=== PATIENT | male | born 1950 | race Caucasian/White ===

== ENCOUNTER 2023-09-09 11:57 | Outpatient (CLI) | payer MEDICARE, SELFPAY ==
--- NOTE | 2023-09-09 13:25 | ECG_ITS ---
Measurements Intervals [place] Rate: 52 P: 27 GA: 162 QRS: 12 QRSD: 90 T: 6 QT: 407 QTc: 381 Interpretive Statements SINUS BRADYCARDIA BORDERLINE T WAVE ABNORMALITY- INFERIOR LEADS BASELINE ARTIFACT- I, II, III, AVR, AVL, AVF, V4-V6 BORDERLINE ECG NO PREVIOUS ECG AVAILABLE FOR COMPARISON Electronically Signed On 09-09-2023 14:08:11 CDT by Michael Patel D.O.
[2023-09-09 14:24] LABS: Anion Gap 6 mmol/L (8-16); Blood Urea Nitrogen 27 mg/dL (9-20); Calcium 9.9 mg/dL (8.4-10.2); Carbon Dioxide 32 mmol/L (22-30); Chloride 103 mmol/L (98-107); Estimated Glomerular Filt Rate 43; Glucose 141 mg/dL (65-110); Potassium 4.4 mmol/L (3.4-5.0); Sodium 141 mmol/L (137-145)
[2023-09-09 14:28] LABS: Prothrombin Time 13.6 Seconds (11.1-14.7)
[2023-09-09 14:29] LABS: Partial Thromboplastin Time 24.7 Seconds (22.3-36.8)
[2023-09-09 15:01] LABS: Hemoglobin A1C 7.1 % (<5.7)
== END 2023-09-09 11:58 | disposition home or self-care (01) ==
LOC: ANHSURGERY 12:08
PROVIDERS: Anesthesiology; Visit Provider Urology
DX: N52.9 Male erectile dysfunction, unspecified (principal); Z01.818 Encounter for other preprocedural examination; I12.9 Hypertensive chronic kidney disease with stage 1 through stage 4 chronic kidney disease, or unspecified chronic kidney disease; N18.9 Chronic kidney disease, unspecified; E11.9 Type 2 diabetes mellitus without complications
CPT/HCPCS: 36415; 80048; 83036; 85610; 85730; 87086; 93005

== ENCOUNTER 2023-10-02 01:55 | Day surgery (SDC) | payer MEDICARE, SELFPAY ==
--- NOTE | 2023-09-09 12:03 | PC.NURSE ---
Report to the Outpatient Waiting Room, entrance under the green pavilion located off [facility], at time __6:00AM on date __10/02/23 . Planned Procedure Time: __7:30AM . Time changes happen often and if your time is changed the preop area will call you the afternoon before. - You and your visitor will be asked to self-screen and do not enter if you have any COVID symptoms. - A mask is optional within the hospital at this time. Patients may have clear liquids (water, carbonated beverages, clear teas, apple juice) until 3 hours prior to surgery with a maximum of 20 ounces. - No food from midnight until time of surgery. Take the following medications with a SIP of water the morning of surgery: ___CARVEDILOL, EYE DROPS DO NOT STOP ANY OF YOUR OTHER PRESCRIPTION MEDICATIONS PRIOR TO SURGERY ?EXCEPT THE FOLLOWING Medications to discontinue per physician ___HOLD ASPIRIN 7 DAYS PRE-OP PER DR KIDD Date to take last dose____09/24/23 Please no make-up, nail portuguese, hairspray, perfume, deodorant, or body powder the day of surgery. No jewelry (including any body piercings) or valuables the day of surgery, leave them at home. Please take a shower or bath the night before, or the morning of, surgery with an antibacterial soap. Wear comfortable, loose fitting clothing. - Jewelry must be removed prior to entering the operating room. Rings and piercings that are not removed may be cut off. - The hospital will not accept responsibility for valuables. - Please leave all valuables, including medications, at home the day of surgery. If you are going home after surgery, a licensed regional truck driver must drive you home. - NO public transportation without another adult if you receive anesthesia. - We recommend that an adult stay with you for 24 hours following discharge. - We also recommend that you do not drive, make important decision, drink alcoholic beverages, or take any drugs that were not prescribed by your health care provider for at least 24 hours after your discharge time. Follow any additional instructions given to you from your surgeon. If you or anyone in your household have experienced Covid symptoms in the past week, please notify your surgeon or the nurse liaison at the phone number below for possible testing. Telephone instructions given to ____PATIENT and asked if any additional questions and then verbalized understanding. Patient advised to call surgeon office or pre surgery nurse liaison [phone] if any additional questions.
[2023-09-09 12:29] VITALS: BP 134/68; PULSE 63; RESP 16; TEMP 36.4; O2SAT 95; BMI 33.2
[2023-10-02] VITALS (15 sets, daily range): BP systolic 125–158; BP diastolic 64–82; PULSE 58–70; RESP 12–18; TEMP 36.1–37.1; O2SAT 93–100; BMI 31.9
[2023-10-02] MEDS: VANCOMYCIN 1,500 MG/NS 500 ML BAG 250 MG IVPB (06:55)
[2023-10-02] MEDS: LACTATED RINGERS 1,000 ML 30 ML IV CONT ×2 (06:55→11:33)
[2023-10-02] MEDS: DEXTROSE 5% IVPB (07:00)
[2023-10-02] MEDS: GENTAMICIN SULFATE IVPB (07:00)
[2023-10-02 07:16] LABS: Glucose Point of Care 126 mg/dl (65-105)
--- NOTE | 2023-10-02 07:30 | WPDHPUPDATE1 ---
History and Physical Update Update Date/Time: 10/02/23 07:30 History and Physical has been reviewed, including an updated exam of the patient. There are NO changes in the patient's condition. Risks, benefits, and alternatives have been discussed and questions answered. Patient agrees to proceed with procedure.
--- NOTE | 2023-10-02 07:54 | P.PNAN_ITS ---
Anes - Initial Pre Proc Eval Procedure: Operation Date: 10/02/23 08:30 Proposed Procedures p Insertion Inflatable Penile Prosthesis - Mau Armstrong MD Date/Time: 10/02/23 07:54 Surgeon: Mau Armstrong MD Pre Op Diagnosis: ED, Male stress incontinence Patient Data Age: 73 Gender: M Height: 1.73 m Weight: 95.4 kg Last Vital Signs Temp 97 F L 10/02/23 07:17 Pulse 58 L 10/02/23 07:17 Resp 16 10/02/23 07:17 BP 150/80 H 10/02/23 07:17 Pulse Ox 98 10/02/23 07:17 O2 Del Method Room Air 10/02/23 07:17 Allergies Allergy/AdvReac Type Severity Reaction Status Date / Time No Known Allergies Allergy Verified 10/02/23 06:34 Home Medications Medication Instructions Recorded Confirmed Type aspirin 81 mg tablet 81 mg PO DAILY 09/09/23 10/02/23 History atorvastatin 20 mg tablet 20 mg PO QAM 09/09/23 10/02/23 History carvedilol 6.25 mg tablet 6.25 mg PO QAM 09/09/23 10/02/23 History dulaglutide 0.75 mg/0.5 mL 0.75 mg subcut WEEKLY 09/09/23 10/02/23 History subcutaneous pen injector (Trulicity) fenofibrate 150 mg capsule 150 mg PO QAM 09/09/23 10/02/23 History omeprazole 40 mg capsule,delayed 40 mg PO QAM 09/09/23 10/02/23 History release perfluorohexyloctane (PF) 100 % 1 drp EACH EYE BID 09/09/23 10/02/23 History eye drops (Miebo) pioglitazone 30 mg tablet 30 mg PO QAM 09/09/23 10/02/23 History sildenafil 100 mg tablet 12.5 mg PO 4XW 09/09/23 09/09/23 History valsartan 160 mg tablet 160 mg PO QAM 09/09/23 10/02/23 History Laboratory Tests 10/02/23 07:13 POC Capillary Glucose 126 H mg/dl (65-105) Patient hx anesthesia problems: none Family hx anesthesia problems: none Results Review: All pre-operative results and documents have been reviewed as part of the pre- operative evaluation. PMFSH Social History Social History Smoking status: Former smoker Tobacco type: cigarettes Smoking end date: 12/23/99 Additional smoking assessment comments: 1 PACK/WEEK X 30 YRS Living arrangements: alone Spiritual care concerns: No Anes - Eval Final PreProcedure Day of Procedure 10/02/23 07:54 Patient weight: obese Heart: regular rate and rhythm Lungs: clear to auscultation Airway: Mallampati scale class III Neurological: alert and oriented Last oral intake: >/= 8 hours ASA classification: III Emergent: no Anesthetic plan: proceed Anesthesia type and monitoring: general LMA and ETT and standard monitoring Results Review: All pre-operative results and documents have been reviewed as part of the pre- operative evaluation. Informed Consent: The patient's anesthetic plan and its attendant risks and benefits were discussed with the patient/family/POA. Questions were solicited and answers provided to the satisfaction of the patient/family/POA.
[2023-10-02] MEDS: ceFAZolin SODIUM 1 GM VIAL (09:44)
[2023-10-02] MEDS: LIDOCAINE 1% BUFFERED WITH 8.4% SODIUM BICARB 1 ML SYRINGE 10 ML INFILTRATE (09:45)
[2023-10-02] MEDS: BUPivacaine HCL 0.25% PF 30 ML VIAL INFILTRATE (09:47)
--- NOTE | 2023-10-02 11:34 | W.PM.PROC2 ---
Procedure Note - Detailed Date of Procedure 10/02/23 Pre-op Diagnosis ED Post-op Diagnosis Other (ED, Peyronie's) Procedure Performed 1. Insertion of 3-piece inflatable penile prosthesis. 2. Artificial erection using pharmacological agent. 3. Modelling to correct Peyronie's disease Surgeon Mau Armstrong MD Anesthesia General Description of Procedure DESCRIPTION OF OPERATION Informed consent obtained, patient taken to the operating room and given preoperative IV antibiotics with vancomycin and gentamicin. Additionally the patient has been taking oral levofloxacin and done a 3-day wash with Hibiclens. The patient was shaved. He was then prepped with Betadine scrub and paint followed by ChloraPrep. Sterile drapes were placed. We again prepped with ChloraPrep. A 16-Uzbek Husain catheter was inserted with return of clear urine. We then performed a pharmacologically induced erection with dilute lidocaine. There was a symmetric erection with slight dorsal curvature. We then made a penoscrotal 3 cm transverse incision. We dissected bluntly down to identify the corporal bodies taking great care not to injure the urethra. Stay sutures of 2-0 PDS were placed in the corporal body. We sharply opened the corpora. We then serially dilated up to a 12 Georges dilator. We then measured the corpora. Measurements were 8.5 cm proximally and 11.5 cm distally. We irrigated and there was no injury. We then performed an identical procedure on the contralateral side. Measurements were 9 cm proximal, 11 cm distal. Dilators were placed into the corpora bilaterally confirming that there was no crossover. We elected to place an AMS CX device 18 cm + 2 cm of rear tip extenders. We again irrigated the corporal bodies. We then inserted the prosthesis. We inflated using a surrogate reservoir and the device sat nicely with tips in the mid glans, with [id number] of dorsal curvature. We then placed rubber shod on the tubing to the pump and performed penile modeling to correct the curvature. We took great care not to injure the fossa navicularis or IPP with modeling procedure. Able to correct the curvature to no more than 10? of curvature in any direction.. We then deflated. We then closed the pre-placed 2-0 PDS sutures. We again inflated using the surrogate reservoir with a straight erection and excellent cosmetic result. We then made a left lower quadrant incision for approximately 2 cm. We bluntly dissected down to the external oblique fascia. The fascia was opened. We then the rectus muscle and created a space superiorly in the sub rectus. We emptied the bladder prior to our incision. We then irrigated copiously. We pre-placed 0 Vicryl sutures. We placed the reservoir in the sub rectus space. We fill it with 100 mL and there was no back pressure. We then left 85 mL in the reservoir. Our pre-placed external oblique fascia sutures were closed. We then made a subdartos pouch in the midline for the pump placement. It sat nicely in the inferior scrotum. We then closed the hiatus with 3-0 Vicryl suture. The tubing was then brought up to the abdominal incision. Using the quick connect device, we connected the pump to the reservoir. We then cycled the device again and it functioned nicely. We then removed the stay sutures through the glans. We then again irrigated copiously. We closed the scrotal incision with a multiple layers of 3-0 Vicryl sutures and then 3-0 and 4-0 Monocryl skin closure. The left lower quadrant incision was closed with 2-0 Vicryl to Forest's, 3-0 Vicryl deep dermal layer and a 4-0 Monocryl subcuticular closure. Glue was placed over all incisions. A compressive dressing was placed. Patient was awakened and taken to recovery room in stable condition. Complications No immediate complications Condition Stable Disposition PACU
[2023-10-02 11:55] LABS: Glucose Point of Care 100 mg/dl (65-105)
[2023-10-02] MEDS: fentaNYL CITRATE INJ (*CRX) 100 MCG/2 ML VIAL 25 MCG IV PUSH (12:28)
--- NOTE | 2023-10-02 13:33 | ADMGEN ---
This patient, Floyd Vela, was admitted to Medical Room 348-01. Patient/family oriented to hospital policies and general routines including ID bracelet, bed and alarms, visiting hours, pain management, procedures, bathroom and other care routines, personal items, smoking policy, room service/diet, and visiting hours. Information on how to activate the Rapid Response Team has been discussed. Patient/Family are encouraged to report perceived risks to care and to ask questions if they do not understand what they are told or what they should do.
[2023-10-02] MEDS: HYDROcodone/acetaminophen (*CRX) 5-325 MG TABLET 1 TAB PO ×2 (14:37→23:52)
[2023-10-02] MEDS: DEXTROSE 5%/0.45% SOD CHL 1,000 ML 125 ML IV CONT ×2 (14:38→22:18)
[2023-10-02] MEDS: DOCUSATE SODIUM 100 MG CAPSULE PO (16:40)
[2023-10-02] MEDS: MORPHINE SULFATE (*CRX) 2 MG/ML INJ IV PUSH ×3 (16:44→21:42)
[2023-10-02 17:06] LABS: Glucose Point of Care 132 mg/dl (65-105)
[2023-10-02] MEDS: VANCOMYCIN 1,000 MG/NS 250 ML 1,000 MG/250 ML BAG 250 MG IVPB (18:11)
[2023-10-03] MEDS: HYDROcodone/acetaminophen (*CRX) 5-325 MG TABLET 1 TAB PO ×3 (03:57→13:10)
[2023-10-03 03:58] VITALS: BP 123/66; PULSE 58; RESP 17; TEMP 36.5; O2SAT 94
[2023-10-03] MEDS: DEXTROSE 5%/0.45% SOD CHL 1,000 ML 125 ML IV CONT (03:59)
[2023-10-03 06:12] LABS: Hematocrit 39.3 % (42.0-52.0); Hemoglobin 12.6 g/dL (14.0-18.0)
[2023-10-03 06:32] LABS: Anion Gap 5 mmol/L (4-12); Blood Urea Nitrogen 15 mg/dL (9-20); Calcium 8.6 mg/dL (8.4-10.2); Carbon Dioxide 25 mmol/L (22-30); Chloride 105 mmol/L (98-107); Estimated CRCL calculation 61 ml/min; Estimated Glomerular Filt Rate > 60; Glucose 152 mg/dL (65-110); Potassium 3.6 mmol/L (3.4-5.0); Sodium 135 mmol/L (137-145)
[2023-10-03] MEDS: VANCOMYCIN 1,000 MG/NS 250 ML 1,000 MG/250 ML BAG 250 MG IVPB (06:32)
--- NOTE | 2023-10-03 07:54 | WPDANESPN ---
Anes - Prog Note Post-Op Date/Time: 10/03/23 07:54 Cardiovascular status: normal Respiratory status: normal Airway patency: baseline Mental status: baseline Post-Op hydration status: normal Vital Signs: Last Vital Signs Temp 36.5 C 10/03/23 03:58 Pulse 58 L 10/03/23 03:58 Resp 17 10/03/23 03:58 BP 123/66 10/03/23 03:58 Pulse Ox 94 10/03/23 03:58 O2 Del Method Nasal Cannula 10/02/23 19:41 O2 Flow Rate 1 10/02/23 19:41 Pain Score (VAS): 08/03 I/O: Intake & Output 10/02/23 10/02/23 10/03/23 15:59 23:59 07:59 Intake Total 710 1948.3 810.4 Output Total 776 583 6400 Balance 350 1548.3 -839.6 Laboratory Tests 10/03/23 05:33 10/03/23 05:33 10/02/23 10/02/23 10/03/23 11:50 17:02 05:33 Hgb 12.6 L Hct 39.3 L Sodium 135 L Potassium 3.6 Chloride 105 Carbon Dioxide 25 Anion Gap 5 BUN 15 D Creatinine 1.10 Estim Creat Clear Calc 61 Estimated GFR > 60 Glucose 152 H POC Capillary Glucose 100 132 H Calcium 8.6 Post-procedural complaints: none Patient Feedback: Patient satisfied with anesthetic care.
[2023-10-03 07:58] VITALS: O2SAT 93
[2023-10-03 08:00] VITALS: BP 146/68; PULSE 58; RESP 18; TEMP 36.3; O2SAT 96
[2023-10-03 08:41] LABS: Glucose Point of Care 142 mg/dl (65-105)
[2023-10-03] MEDS: DOCUSATE SODIUM 100 MG CAPSULE PO (08:48)
[2023-10-03] MEDS: levoFLOXacin 500 MG TABLET PO (08:48)
[2023-10-03] MEDS: ATORVASTATIN 20 MG TABLET PO (08:48)
[2023-10-03] MEDS: ENOXAPARIN 30 MG/0.3 ML SYRINGE SUB-Q (08:49)
[2023-10-03] MEDS: VALSARTAN 160 MG TABLET PO (08:49)
[2023-10-03] MEDS: PIOGLITAZONE HCL 30 MG TABLET PO (08:49)
[2023-10-03 08:50] VITALS: PULSE 60
[2023-10-03] MEDS: carvediloL 6.25 MG TABLET PO (08:50)
--- NOTE | 2023-10-03 09:02 | WPDUROPN2 ---
Progress Note: A&P Assessment and Plan (1) Erectile dysfunction: Code(s): N52.9 - Male erectile dysfunction, unspecified Status: Acute Assessment and Plan: Underwent insertion of 3 piece inflatable penile prosthesis on 10/02/[address] Armstrong. Tolerated procedure well and pain has been well controlled. Dressing removed today and surgical site looks good. Guerra catheter removed without difficulty. Will plan for discharge home later today after patient has voided. Postoperative instructions reviewed. (2) Peyronie's disease: Code(s): N48.6 - Induration penis plastica Status: Acute Assessment and Plan: S/p penile modeling procedure Subjective Subjective Date/Time Seen: 10/03/23 09:02 Interval history: Doing well. Pain well controlled. No nausea or vomiting. Tolerating diet. Ambulating without difficulty. Review of Systems Review of Systems: All systems reviewed & are unremarkable except as noted in HPI and below Exam Narrative: General: Awake, alert, comfortable, no acute distress HEENT: Normocephalic, atraumatic, sclerae anicteric Respiratory: Normal respiratory effort, no accessory muscle use Abdomen: Nondistended, soft, nontender : guerra catheter draining clear yellow urine, penis is erect and covered with dressing that is clean and dry, scrotal incision clean dry and intact Skin: Normal coloration, warm and dry, left lower quadrant incision clean dry intact, covered with dermabond Neurologic: No focal neuro deficits noted Psychiatric: Appropriate mood and affect, judgment and insight intact Objective Data Vital Signs Vital Signs: Vital Signs - 24 hr 10/02/23 11:33 10/02/23 11:45 10/02/23 12:00 Temperature 97.9 F Pulse Rate 70 67 65 Respiratory Rate 14 13 13 Blood Pressure 129/74 136/72 131/69 Pulse Oximetry 97 98 93 Oxygen Delivery Simple Face Mask Simple Face Mask Room Air Oxygen Flow Rate 6 10 10/02/23 12:15 10/02/23 12:30 10/02/23 12:45 Temperature Pulse Rate 64 58 L 60 Respiratory Rate 16 12 14 Blood Pressure 125/68 129/72 125/82 Pulse Oximetry 97 96 96 Oxygen Delivery Nasal Cannula Nasal Cannula Nasal Cannula Oxygen Flow Rate 2 2 2 10/02/23 13:00 10/02/23 13:30 10/02/23 14:00 Temperature 98.2 F 98.2 F Pulse Rate 58 L 59 L 58 L Respiratory Rate 12 16 16 Blood Pressure 135/68 145/64 H 138/69 Pulse Oximetry 96 100 100 Oxygen Delivery Nasal Cannula Oxygen Flow Rate 2 10/02/23 15:00 10/02/23 18:26 10/02/23 19:41 Temperature 98.2 F Pulse Rate 59 L Respiratory Rate 18 Blood Pressure 158/70 H Pulse Oximetry 100 96 96 Oxygen Delivery Nasal Cannula Nasal Cannula Oxygen Flow Rate 1 1 10/02/23 18:48 10/02/23 22:48 10/03/23 03:58 Temperature 98.8 F 98.1 F 97.7 F Pulse Rate 60 64 58 L Respiratory Rate 18 17 17 Blood Pressure 138/79 133/68 123/66 Pulse Oximetry 98 98 94 Oxygen Delivery Oxygen Flow Rate 10/03/23 07:58 10/03/23 08:00 10/03/23 08:50 Temperature 97.3 F L Pulse Rate 58 L 60 Respiratory Rate 18 Blood Pressure 146/68 H Pulse Oximetry 93 96 Oxygen Delivery Room Air Oxygen Flow Rate Intake/Output Intake/Output: Intake & Output 09/30/23 10/01/23 10/02/23 10/03/23 23:59 23:59 23:59 23:59 Intake Total 2658.3 810.4 Output Total 760 1650 Balance 1898.3 -839.6 Meds/Results Medications: Active Medications Generic Name Dose Route Start Last Admin Trade Name Freq PRN Reason Stop Dose Admin Hydrocodone Bitart/Acetaminophen 1 tab 10/02/23 13:03 10/03/23 08:51 Hydrocodone/Acetaminophen (*Crx) 5-325 Mg Tablet PO 1 tab Q4H PRN Administration Pain Rated 1-6 Atorvastatin Calcium 20 mg 10/03/23 09:00 10/03/23 08:48 Atorvastatin 20 Mg Tablet PO 20 mg QAM ISATU Administration Carvedilol 6.25 mg 10/03/23 09:00 10/03/23 08:50 Carvedilol 6.25 Mg Tablet PO 6.25 mg QAM ISATU Administration Docusate Sodium 100 mg 10/02/23 17:
[2023-10-03 12:01] LABS: Glucose Point of Care 141 mg/dl (65-105)
--- NOTE | 2023-10-03 12:03 | PM.DS ---
DS: Admitting Diagnosis Discharge Date 10/03/2023 Admitting Diagnosis Erectile dysfunction DS: Discharge Diagnosis Discharge Diagnosis (1) Erectile dysfunction: Code(s): N52.9 - Male erectile dysfunction, unspecified Status: Acute (2) Peyronie's disease: Code(s): N48.6 - Induration penis plastica Status: Acute DS: Summary Hospital Course Hospital Course: Floyd Vela is a 73 year old male who presented to [facility] on 10/02/2023 and underwent insertion of 3 piece inflatable penile prosthesis and moderling to correct Peyronie's disease by Dr. Armstrong. He tolerated the procedure well and his pain was controlled postoperatively. Dressing and guerra catheter removed on postop day 1. He was able to void without difficulty. He will take Bactrim x1 week. Course of analgesics was provided. Postoperative instructions were reviewed and he was provided with a written copy. He will follow up with Dr. Armstrong in 2 weeks. All questions answered and he felt comfortable with plans for discharge home. Time Spent with Patient Time attestation: Total time spent providing and/or coordinating discharge services:30 minutes Exam Narrative: General: Awake, alert, comfortable, no acute distress HEENT: Normocephalic, atraumatic, sclerae anicteric Respiratory: Normal respiratory effort, no accessory muscle use Abdomen: Nondistended, soft, nontender : guerra catheter draining clear yellow urine, penis is erect and covered with dressing that is clean and dry, scrotal incision clean dry and intact Skin: Normal coloration, warm and dry, left lower quadrant incision clean dry intact, covered with dermabond Neurologic: No focal neuro deficits noted Psychiatric: Appropriate mood and affect, judgment and insight intact DS: Data Data Completed and Pending Labs on day of discharge: Labs from last 24 hours 10/03/23 10/03/23 10/03/23 11:57 08:35 05:33 Hgb 12.6 L Hct 39.3 L Sodium 135 L Potassium 3.6 Chloride 105 Carbon Dioxide 25 Anion Gap 5 BUN 15 D Creatinine 1.10 Estim Creat Clear Calc 61 Estimated GFR > 60 Glucose 152 H POC Capillary Glucose 141 H 142 H Calcium 8.6 10/02/23 17:02 Hgb Hct Sodium Potassium Chloride Carbon Dioxide Anion Gap BUN Creatinine Estim Creat Clear Calc Estimated GFR Glucose POC Capillary Glucose 132 H Calcium Discharge Plan Discharge Attending physician on discharge: Mau Armstrong Discharging Clinician: Lamar Lai Patient Disposition: Home, Self-Care Activity: other - see discharge instructions Diet: regular Wound Care Instructions: follow printed instructions Discharge Instructions: Please refer to printed post-op instructions Continue to wear jockstrap Medications sent to pharmacy: Take Bactrim two times per day for 7 days Take Colace twice daily (stool softener) You can take Sandy as needed for pain. Do not drive or drink alcohol while taking this medication. Hold aspirin until 10/09/[address] Armstrong 10/18/23 at 9:45 Patient Instructions: Antibiotic Form Stand Alone Forms: General Discharge Information Follow-up/Referrals: Mau Armstrong MD [Physician] - 10/18/23 9:45 am Discharge Medications: Continued carvedilol 6.25 mg tablet 6.25 mg PO QAM atorvastatin 20 mg tablet 20 mg PO QAM omeprazole 40 mg capsule,delayed release(DR/EC) 40 mg PO QAM pioglitazone 30 mg tablet 30 mg PO QAM valsartan 160 mg tablet 160 mg PO QAM fenofibrate 150 mg capsule 150 mg PO QAM Trulicity 0.75 mg/0.5 mL pen injector 0.75 mg SUBCUT WEEKLY Rx Instructions: TUESDAYS Miebo 100 % drops 1 drp EACH EYE BID Held aspirin 81 mg Tablet 81 mg PO DAILY Hold Instructions: Resume on 10/08/23 Discontinued sildenafil 100 mg tablet 12.5 mg PO 4XW Date of admission:
[2023-10-03] MEDS: GENTAMICIN SULFATE INJ 160 MG in DEXTROSE 5% 100 ML 104 MG IVPB (12:18)
== END 2023-10-03 14:30 | disposition home or self-care (01) ==
LOC: ANHSURGERY 06:19 → ANH3MED 10-03 12:03
PROVIDERS: Visit Provider Urology
PROC: (CPT 54405; principal; 2023-10-02 08:30)
DX: N52.9 Male erectile dysfunction, unspecified (principal); N48.6 Induration penis plastica; N39.46 Mixed incontinence; Z79.82 Long term (current) use of aspirin; Z79.85 Long-term (current) use of injectable non-insulin antidiabetic drugs; Z79.84 Long term (current) use of oral hypoglycemic drugs; Z87.891 Personal history of nicotine dependence; E66.9 Obesity, unspecified; Z68.32 Body mass index [BMI] 32.0-32.9, adult; Z85.46 Personal history of malignant neoplasm of prostate; Z92.3 Personal history of irradiation
CPT/HCPCS: 54405; 54235; 54360; 36415; 80048; 82948; 83036; 85014; 85018; 85610; 85730; 87086; 93005; A9270; C1813; J0330; J0690; J1170; J1580; J1650; J2250; J2270; J2405; J2704; J3010; J3370; J7030; J7120